=== PATIENT | female | born 1995 | race Caucasian/White ===

== ENCOUNTER 2021-05-16 22:31 | Emergency (ER) | payer MEDICAID ==
[~2021-05-16] VITALS: Ht 157.5 cm; Wt 91.0 kg
[~2021-05-16 22:31] MED LIST: TOPUD MT
[2021-05-17] MEDS ORDERED: ACETAMINOPHEN 325MG TABLET PO STA (02:07)
[2021-05-17] MEDS ORDERED: ONDANSETRON HCL 4MG/2ML INJ IV ONE (02:15)
[2021-05-17] MEDS ORDERED: SODIUM CHLORIDE 0.9% 1,000 ML IV ONE (02:15)
[2021-05-17 02:30] LABS: BASOPHILS % 0.3 % (0.0-2.0); HEMATOCRIT. 40.1 % (36.0-48.0); HEMOGLOBIN. 13.3 g/dL (12.0-16.0); LYMPHOCYTES % 23.3 % (20.0-50.0); MEAN CORPUSCULAR HEMOGLOBIN 28.5 pg (28.0-32.0); MEAN CORPUSCULAR VOLUME 85.6 fL (81.0-99.0); MEAN PLATELET VOLUME 8.8 fl (7.4-10.4); MONOCYTES % 9.4 % (2.0-8.0); PLATELET 205 x1000/uL (130-400); RED BLOOD CELL COUNT 4.68 mill/uL (4.2-5.4); RED CELL DISTRIBUTION WIDTH 13.7 % (11.6-14.6)
[2021-05-17 02:35] LABS: CHLORIDE 105 mEq/L (98-107)
[2021-05-17 02:38] LABS: HCG SCREEN NEGATIVE
[2021-05-17] MEDS ORDERED: ONDA4TAB5 MT (05:19)
[2021-05-17 05:45] VITALS: BP 114/55
== END 2021-05-17 06:07 | disposition home or self-care (01) ==
LOC: ER 22:31
DX: U07.1 COVID-19 (principal); J12.82 Pneumonia due to coronavirus disease 2019; R53.1 Weakness
CPT/HCPCS: 36415; 71045; 80053; 84484; 84703; 85025; 85379; 93005; 96361; 96374; 99284; J2405; J7030

== ENCOUNTER 2024-06-27 18:31 | Emergency (ER) | payer MEDICAID ==
[~2024-06-27] VITALS: Ht 160 cm; Wt 130.1 kg
[~2024-06-27 18:31] MED LIST changes: +ONDA4TAB5 MT
[2024-06-27 18:58] VITALS: BP 134/80; TEMP 97.9; O2SAT 99
[2024-06-27 19:19] VITALS: PULSE 92; RESP 18
[2024-06-27] MEDS ORDERED: METH-653 MT (19:25)
[2024-06-27] MEDS ORDERED: IBUPROFEN 600MG TABLET PO ONE (19:30)
== END 2024-06-27 20:44 | disposition home or self-care (01) ==
LOC: ER 18:31
DX: M54.50 Low back pain, unspecified (principal); I10 Essential (primary) hypertension
CPT/HCPCS: 99283